=== PATIENT | female | born 1965 | race African-American/Black ===

== ENCOUNTER 2018-04-17 10:17 | Observation (INO) ==
[2018-04-17] MEDS ORDERED: ONDANSETRON 4 MG/2 ML VIAL IM STA (10:35)
[2018-04-17] MEDS ORDERED: ENOXAPARIN 100 MG/ML SYRINGE SUBCUT STA (10:35)
[2018-04-17] MEDS ORDERED: NITROGLYCERIN 2% OINT 1 INCH/GM PACK TOP STA (10:35)
[2018-04-17] MEDS ORDERED: ASPIRIN 325 MG TABLET PO STA (10:35)
[2018-04-17] MEDS ORDERED: MORPHINE 4 MG/1 ML VIAL IV STA (10:35)
[2018-04-17] MEDS ORDERED: METOPROLOL TARTRATE 5 MG/5 ML VIAL IV STA (10:41)
[2018-04-17 10:55] LABS: Basophils % 0.4 % (0.0-0.8); Eosinophils # 0.1 10*3/uL (0.0-0.87); Hematocrit 41.3 VOL% (35.7-47.0); Hemoglobin 13.4 GM/DL (12.0-16.0); Immature Granulocytes % 0.2 %; Immature Granulocytes Absolute 0.01 #; Lymphocytes # 2.1 10*3/uL (1.4-4.0); Lymphocytes % 38.7 % (21.3-54.2); Mean Corpuscular HGB Conc 32.4 GM/DL (32-36); Mean Corpuscular Hemoglobin 29 PG (27-34); Mean Corpuscular Volume 88.2 FL (87-102); Mean Platelet Volume 12.3 FL (9.6-12.0); Monocytes # 0.6 10*3/uL (0.11-0.8); Monocytes % 10.3 % (1.7-12.7); Neutrophils # 2.7 10*3/uL (1.4-7.4); Neutrophils % 48.4 % (38.7-73.9); Platelet Count 278 T/CUMM (130-400); Red Blood Count 4.68 MC/CUMM (3.8-5.5); White Blood Count 5.5 T/CUMM (4-12)
[2018-04-17 11:04] LABS: INR 1.1; PT Patient Result 11.9 SECS; Partial Thromboplastin Time 30.7 SECS (0-40)
[2018-04-17] MEDS ORDERED: ONDANSETRON 4 MG/2 ML VIAL IV STA (11:09)
[2018-04-17 11:22] LABS: Apearance,Urine Slightly Hazy (Clear); Blood, Urine Negative (Negative); Glucose,Urine (UA) Negative (Negative); Hyaline Casts,Urine 13 /LPF (0-3); Ketones,Urine 5 mg/dL (Negative); Mucus,Urine Moderate /LPF (Occasional); Nitrite,Urine Negative (Negative); Protein,Urine 30 MG/DL; Squamous Epithelial Cell,Urine Occasional /HPF (0-10); Urine Color Amber (Yellow); Urine Specific Gravity 1.025 (1.001-1.035); WBC,Urine 3 /HPF (0-6)
[2018-04-17 11:23] LABS: Bilirubin,Urine Small mg/dL (Negative)
[2018-04-17 11:36] LABS: Albumin 3.4 G/DL (3.4-5.0); Barbiturates Screen,Urine Negative (Negative); Benzodiazepines Screen,Urine Negative (Negative); Bilirubin,Total 0.6 MG/DL (0.2-1.0); Calcium 8.6 MG/DL (8.5-10.1); Cannabinoid Screen,Urine Positive (Negative); Opiate Screen,Urine Negative (Negative); Osmolality,Calculated 282.3 MOS/KG (273-304); Phencyclidine Screen,Urine Negative (Negative); Potassium 4.4 MMOL/L (3.5-5.1); Total Protein 7.6 G/DL (6.4-8.3)
[2018-04-17] MEDS ORDERED: LEVOFLOXACIN INJ 500 MG in PREMIX 1 EACH IV STA (12:48)
[2018-04-17] MEDS ORDERED: GLUCAGON 1 MG VIAL IM PRN ×2 (13:41→13:44)
[2018-04-17] MEDS ORDERED: ONDANSETRON 4 MG/2 ML VIAL IV PRN (13:41)
[2018-04-17] MEDS ORDERED: guaiFENesin/DM ER 600-30 MG TABLET PO PRN (13:41)
[2018-04-17] MEDS ORDERED: DOCUSATE SODIUM 100 MG CAPSULE PO PRN (13:41)
[2018-04-17] MEDS ORDERED: diphenhydrAMINE CAP 25 MG CAPSULE PO PRN (13:41)
[2018-04-17] MEDS ORDERED: DEXTROSE 50% 25 GM/50 ML VIAL IV PRN ×2 (13:41→13:44)
[2018-04-17] MEDS ORDERED: ENOXAPARIN 40 MG/0.4 ML SYRINGE SUBCUT SCH (14:00)
[2018-04-17] MEDS ORDERED: cefTRIAXone 1,000 MG in SYRINGE 1 EACH IV SCH (15:00)
[2018-04-17] MEDS: ACETAMINOPHEN 325 MG TABLET PO PRN (15:24)
[2018-04-17] MEDS: INSULIN REGULAR 100 UNIT/ML SUBCUT SCH ×2 (16:40→22:47)
[2018-04-17] MEDS: NICOTINE 21 MG/24 HR PATCH TRANSDERM SCH (16:50)
[2018-04-17] MEDS: FUROSEMIDE 40 MG/4 ML VIAL IV SCH (17:00)
[2018-04-18 01:54] LABS: Basophils % 0.4 % (0.0-0.8); Eosinophils # 0.2 10*3/uL (0.0-0.87); Eosinophils % 2.7 % (0.00-10.9); Hematocrit 41.7 VOL% (35.7-47.0); Hemoglobin 13.3 GM/DL (12.0-16.0); Immature Granulocytes % 0.2 %; Immature Granulocytes Absolute 0.01 #; Lymphocytes # 2.3 10*3/uL (1.4-4.0); Lymphocytes % 41.4 % (21.3-54.2); Mean Corpuscular HGB Conc 31.9 GM/DL (32-36); Mean Corpuscular Hemoglobin 29 PG (27-34); Mean Corpuscular Volume 89.5 FL (87-102); Mean Platelet Volume 11.9 FL (9.6-12.0); Monocytes # 0.5 10*3/uL (0.11-0.8); Monocytes % 9.6 % (1.7-12.7); Neutrophils # 2.6 10*3/uL (1.4-7.4); Neutrophils % 45.7 % (38.7-73.9); Platelet Count 278 T/CUMM (130-400); Red Blood Count 4.66 MC/CUMM (3.8-5.5); Red Cell Distribution Width 14.9 % (9.3-17.3); White Blood Count 5.6 T/CUMM (4-12)
[2018-04-18 02:10] LABS: Calcium 8.5 MG/DL (8.5-10.1); Osmolality,Calculated 282.3 MOS/KG (273-304); Potassium 3.3 MMOL/L (3.5-5.1)
[2018-04-18] MEDS: POTASSIUM CHLORIDE 20 MEQ TABLET PO PRN ×3 (04:38→10:34)
[2018-04-18] MEDS ORDERED: CARVEDILOL 3.125 MG TABLET PO SCH (09:00)
[2018-04-18] MEDS ORDERED: AZITHROMYCIN INJ 500 MG in SODIUM CHLORIDE 0.9% 250 ML IV SCH (09:00)
[2018-04-18] MEDS: INSULIN REGULAR 100 UNIT/ML SUBCUT SCH ×2 (10:30→14:29)
[2018-04-18] MEDS: ACETAMINOPHEN 325 MG TABLET PO PRN (10:31)
[2018-04-18] MEDS: NICOTINE 21 MG/24 HR PATCH TRANSDERM SCH (10:32)
[2018-04-18] MEDS: FUROSEMIDE 40 MG/4 ML VIAL IV SCH (10:36)
[2018-04-18 13:07] VITALS: BP 161/93
== END 2018-04-18 14:24 | disposition home or self-care (01) ==
LOC: N.EDINP 10:17 → N.ED 10:17 → N.TELEN 14:25
PROVIDERS: ADMIT Internal Medicine; ATTEND Internal Medicine

== ENCOUNTER 2018-06-11 01:05 | Inpatient (IN) ==
[2018-06-11] MEDS ORDERED: MIDAZOLAM 100 MG in SODIUM CHLORIDE 0.9% 80 ML IV PRN (02:40)
[2018-06-11 02:55] LABS: ABG Base Excess 0.6 MMOL/L (-2.5-2.5); ABG HCO3 24.9 MMOL/L (20-26); ABG Oxygen Saturation 97.6 % (95-100); ABG PH 7.317 (7.35-7.45); ABG TCO2 24.4 MMOL/L (23-27); Allen Test Positive; Pt O2 Delivery Device Ventilator
[2018-06-11 03:11] LABS: Basophils % 0.3 % (0.0-0.8); Eosinophils % 0.2 % (0.00-10.9); Hematocrit 47.3 VOL% (35.7-47.0); Hemoglobin 14.9 GM/DL (12.0-16.0); Immature Granulocytes % 0.6 %; Immature Granulocytes Absolute 0.08 #; Lymphocytes # 1.7 10*3/uL (1.4-4.0); Lymphocytes % 12.6 % (21.3-54.2); Mean Corpuscular HGB Conc 31.5 GM/DL (32-36); Mean Corpuscular Hemoglobin 29 PG (27-34); Mean Platelet Volume 11.7 FL (9.6-12.0); Monocytes # 0.7 10*3/uL (0.11-0.8); Monocytes % 5.2 % (1.7-12.7); Neutrophils # 10.8 10*3/uL (1.4-7.4); Neutrophils % 81.1 % (38.7-73.9); Platelet Count 240 T/CUMM (130-400); Red Cell Distribution Width 15.5 % (9.3-17.3); White Blood Count 13.3 T/CUMM (4-12)
[2018-06-11] MEDS ORDERED: ALBUTEROL 2.5 MG/3 ML NEB RESP TX PRN (03:38)
[2018-06-11] MEDS ORDERED: ACETAMINOPHEN 325 MG TABLET PO PRN (03:38)
[2018-06-11 03:40] LABS: Alanine Aminotransferase 24 U/L (13-56); Albumin 3.8 G/DL (3.4-5.0); Alkaline Phosphatase 112 U/L (45-117); Aspartate Amino Transferase 28 U/L (0-37); Blood Urea Nitrogen 12 MG/DL (7-18); Calcium 8.8 MG/DL (8.5-10.1); Glucose 263 MG/DL (74-106); Osmolality,Calculated 285.5 MOS/KG (273-304); Potassium 3.9 MMOL/L (3.5-5.1); Sodium 139 MMOL/L (136-145); Total Protein 8.7 G/DL (6.4-8.3)
[2018-06-11 03:43] LABS: Troponin I 0.108 NG/ML (0.00-0.045)
[2018-06-11 03:55] LABS: PT Patient Result 11.3 SECS
[2018-06-11] MEDS: PROPOFOL 1,000 MG/100 ML BOTTLE IV SCH ×4 (04:00→23:30)
[2018-06-11] MEDS: PANTOPRAZOLE 40 MG VIAL IV SCH (05:59)
[2018-06-11] MEDS: ENOXAPARIN 40 MG/0.4 ML SYRINGE SUBCUT SCH (08:47)
[2018-06-11] MEDS: FUROSEMIDE 40 MG/4 ML VIAL IV SCH ×2 (08:47→15:51)
[2018-06-11 08:50] LABS: Amorphous Crystals,Urine Occasional /HPF (Few); Apearance,Urine CLEAR (Clear); Bilirubin,Urine Negative (Negative); Blood, Urine Negative (Negative); Glucose,Urine (UA) Negative (Negative); Ketones,Urine Negative (Negative); Mucus,Urine Occasional /LPF (Occasional); Nitrite,Urine Negative (Negative); Protein,Urine Negative; RBC,Urine 5 /HPF (0-4); Urine Color Yellow (Yellow); Urine Specific Gravity 1.018 (1.001-1.035); Urine Urobilinogen < 2.0 EU/DL (0.2-1.0); WBC,Urine 20 /HPF (0-6)
[2018-06-11 09:06] LABS: Barbiturates Screen,Urine Negative (Negative); Benzodiazepines Screen,Urine Positive (Negative); Cannabinoid Screen,Urine Positive (Negative); Opiate Screen,Urine Negative (Negative); Phencyclidine Screen,Urine Negative (Negative)
[2018-06-11] MEDS: fentaNYL INJ 1,250 MCG in SODIUM CHLORIDE 0.9% 225 ML IV PRN ×2 (10:06→22:33)
[2018-06-11] MEDS ORDERED: DEXTROSE 50% 25 GM/50 ML SYRINGE IV PRN (12:48)
[2018-06-11] MEDS ORDERED: GLUCAGON 1 MG VIAL IM PRN (12:48)
[2018-06-11] MEDS: INSULIN REGULAR 100 UNIT/ML SUBCUT SCH ×2 (18:42→23:14)
[2018-06-11] MEDS: CARVEDILOL 6.25 MG TABLET PO SCH (21:32)
[2018-06-11] MEDS ORDERED: SODIUM CHLORIDE 0.9% 250 ML IV ONE (23:19)
[2018-06-11] MEDS ORDERED: PHENYLEPHRINE DRIP 40 MG/250 ML PREMIX IV PRN (23:20)
[2018-06-12] MEDS ORDERED: SODIUM CHLORIDE 0.9% 250 ML IV ONE (02:27)
[2018-06-12] MEDS: PROPOFOL 1,000 MG/100 ML BOTTLE IV SCH ×3 (02:30→20:31)
[2018-06-12 03:58] LABS: Allen Test Positive; Pt O2 Delivery Device Ventilator
[2018-06-12 03:59] LABS: ABG Base Excess 5.5 MMOL/L (-2.5-2.5); ABG HCO3 29.4 MMOL/L (20-26); ABG Oxygen Saturation 99.9 % (95-100); ABG PCO2 27.4 MM HG (35-48); ABG TCO2 22.6 MMOL/L (23-27)
[2018-06-12] MEDS: PANTOPRAZOLE 40 MG VIAL IV SCH (04:22)
[2018-06-12 04:49] LABS: Basophils % 0.5 % (0.0-0.8); Eosinophils # 0.1 10*3/uL (0.0-0.87); Eosinophils % 1.5 % (0.00-10.9); Hematocrit 40.9 VOL% (35.7-47.0); Hemoglobin 13.3 GM/DL (12.0-16.0); Immature Granulocytes % 0.2 %; Immature Granulocytes Absolute 0.02 #; Lymphocytes # 3.2 10*3/uL (1.4-4.0); Lymphocytes % 37.6 % (21.3-54.2); Mean Corpuscular HGB Conc 32.5 GM/DL (32-36); Mean Corpuscular Hemoglobin 28 PG (27-34); Mean Corpuscular Volume 86.8 FL (87-102); Mean Platelet Volume 12.1 FL (9.6-12.0); Monocytes # 0.9 10*3/uL (0.11-0.8); Monocytes % 10.2 % (1.7-12.7); Neutrophils # 4.3 10*3/uL (1.4-7.4); Platelet Count 231 T/CUMM (130-400); Red Blood Count 4.71 MC/CUMM (3.8-5.5); Red Cell Distribution Width 15.1 % (9.3-17.3); White Blood Count 8.6 T/CUMM (4-12)
[2018-06-12 05:06] LABS: Calcium 8.9 MG/DL (8.5-10.1); Osmolality,Calculated 288.1 MOS/KG (273-304); Potassium 3.3 MMOL/L (3.5-5.1)
[2018-06-12 05:11] LABS: Prealbumin 14.5 MG/DL (20-40)
[2018-06-12] MEDS ORDERED: POTASSIUM CHLORIDE 20 MEQ/15 ML UDCUP PER TUBE PRN (05:37)
[2018-06-12] MEDS: INSULIN REGULAR 100 UNIT/ML SUBCUT SCH ×4 (05:48→23:35)
[2018-06-12 06:23] LABS: Calcium 9.2 MG/DL (8.5-10.1); Potassium 3.7 MMOL/L (3.5-5.1)
[2018-06-12] MEDS ORDERED: SPIRONOLACTONE 25 MG TABLET PO SCH (09:00)
[2018-06-12] MEDS ORDERED: LOSARTAN 25 MG TABLET PO SCH (09:00)
[2018-06-12] MEDS: FUROSEMIDE 40 MG/4 ML VIAL IV SCH (09:04)
[2018-06-12] MEDS: ENOXAPARIN 40 MG/0.4 ML SYRINGE SUBCUT SCH (09:05)
[2018-06-12] MEDS: CARVEDILOL 6.25 MG TABLET PO SCH (09:05)
[2018-06-12] MEDS: fentaNYL INJ 1,250 MCG in SODIUM CHLORIDE 0.9% 225 ML IV PRN ×2 (09:36→18:28)
[2018-06-12] MEDS: cefTRIAXone 1,000 MG in SYRINGE 1 EACH IV SCH (12:15)
[2018-06-13] MEDS: PROPOFOL 1,000 MG/100 ML BOTTLE IV SCH ×3 (00:34→04:09)
[2018-06-13] MEDS: PANTOPRAZOLE 40 MG VIAL IV SCH (03:55)
[2018-06-13 04:36] LABS: Basophils % 0.4 % (0.0-0.8); Eosinophils # 0.2 10*3/uL (0.0-0.87); Hematocrit 43.3 VOL% (35.7-47.0); Hemoglobin 13.4 GM/DL (12.0-16.0); Immature Granulocytes % 0.2 %; Immature Granulocytes Absolute 0.02 #; Lymphocytes # 3.1 10*3/uL (1.4-4.0); Mean Corpuscular HGB Conc 30.9 GM/DL (32-36); Mean Corpuscular Hemoglobin 28 PG (27-34); Mean Platelet Volume 12.6 FL (9.6-12.0); Monocytes # 1.3 10*3/uL (0.11-0.8); Neutrophils # 5.6 10*3/uL (1.4-7.4); Neutrophils % 54.4 % (38.7-73.9); Platelet Count 231 T/CUMM (130-400); Red Blood Count 4.76 MC/CUMM (3.8-5.5); Red Cell Distribution Width 15.8 % (9.3-17.3); White Blood Count 10.3 T/CUMM (4-12)
[2018-06-13 04:43] LABS: ABG Base Excess 3.8 MMOL/L (-2.5-2.5); ABG HCO3 27.8 MMOL/L (20-26); ABG Oxygen Saturation 98.5 % (95-100); ABG PCO2 39.3 MM HG (35-48); ABG PH 7.457 (7.35-7.45); ABG TCO2 23.7 MMOL/L (23-27); Allen Test Positive; Pt O2 Delivery Device Ventilator
[2018-06-13 04:52] LABS: Calcium 9.2 MG/DL (8.5-10.1); Osmolality,Calculated 285.3 MOS/KG (273-304); Potassium 4.2 MMOL/L (3.5-5.1)
[2018-06-13] MEDS: INSULIN REGULAR 100 UNIT/ML SUBCUT SCH ×2 (05:38→11:48)
[2018-06-13] MEDS ORDERED: FUROSEMIDE 40 MG/4 ML VIAL IV ONE (07:15)
[2018-06-13] MEDS: ENOXAPARIN 40 MG/0.4 ML SYRINGE SUBCUT SCH (08:45)
[2018-06-13] MEDS: LOSARTAN 25 MG TABLET PO SCH (08:50)
[2018-06-13] MEDS: CARVEDILOL 6.25 MG TABLET PO SCH ×2 (08:50→20:58)
[2018-06-13] MEDS: SPIRONOLACTONE 25 MG TABLET PO SCH (08:50)
[2018-06-13] MEDS: ONDANSETRON 4 MG/2 ML VIAL IV PRN ×2 (09:40→12:20)
[2018-06-13] MEDS: cefTRIAXone 1,000 MG in SYRINGE 1 EACH IV SCH (12:15)
[2018-06-13] MEDS ORDERED: ACETAMINOPHEN 500 MG TABLET PO PRN (13:24)
[2018-06-13] MEDS: hydrALAZINE 20 MG/1 ML VIAL IV PRN ×2 (13:40→20:58)
[2018-06-13] MEDS ORDERED: PROMETHAZINE 25 MG TABLET PO PRN (14:12)
[2018-06-14 07:17] LABS: Basophils % 0.4 % (0.0-0.8); Eosinophils # 0.1 10*3/uL (0.0-0.87); Eosinophils % 0.8 % (0.00-10.9); Immature Granulocytes % 0.4 %; Immature Granulocytes Absolute 0.03 #; Lymphocytes # 2.3 10*3/uL (1.4-4.0); Lymphocytes % 26.9 % (21.3-54.2); Mean Corpuscular HGB Conc 31.3 GM/DL (32-36); Mean Corpuscular Hemoglobin 29 PG (27-34); Mean Corpuscular Volume 91.4 FL (87-102); Mean Platelet Volume 11.9 FL (9.6-12.0); Monocytes # 0.8 10*3/uL (0.11-0.8); Monocytes % 9.5 % (1.7-12.7); Neutrophils # 5.3 10*3/uL (1.4-7.4); Red Blood Count 5.25 MC/CUMM (3.8-5.5); Red Cell Distribution Width 15.6 % (9.3-17.3); White Blood Count 8.5 T/CUMM (4-12)
[2018-06-14 07:34] LABS: Calcium 9.6 MG/DL (8.5-10.1); Osmolality,Calculated 280.5 MOS/KG (273-304); Potassium 3.7 MMOL/L (3.5-5.1)
[2018-06-14 07:41] LABS: Platelet Count 169 T/CUMM (130-400)
[2018-06-14] MEDS: CARVEDILOL 6.25 MG TABLET PO SCH ×2 (08:40→20:00)
[2018-06-14] MEDS: PANTOPRAZOLE 40 MG TABLET PO SCH (08:40)
[2018-06-14] MEDS: SPIRONOLACTONE 25 MG TABLET PO SCH (08:40)
[2018-06-14] MEDS: ENOXAPARIN 40 MG/0.4 ML SYRINGE SUBCUT SCH (08:40)
[2018-06-14] MEDS: LOSARTAN 25 MG TABLET PO SCH (08:40)
[2018-06-15 06:00] LABS: Basophils # 0.1 10*3/uL (0.0-0.2); Basophils % 0.6 % (0.0-0.8); Eosinophils # 0.2 10*3/uL (0.0-0.87); Eosinophils % 2.9 % (0.00-10.9); Hematocrit 43.1 VOL% (35.7-47.0); Hemoglobin 13.6 GM/DL (12.0-16.0); Immature Granulocytes % 0.2 %; Immature Granulocytes Absolute 0.02 #; Lymphocytes # 3.6 10*3/uL (1.4-4.0); Lymphocytes % 42.8 % (21.3-54.2); Mean Corpuscular HGB Conc 31.6 GM/DL (32-36); Mean Corpuscular Hemoglobin 29 PG (27-34); Mean Corpuscular Volume 90.5 FL (87-102); Mean Platelet Volume 12.3 FL (9.6-12.0); Monocytes # 0.9 10*3/uL (0.11-0.8); Monocytes % 10.6 % (1.7-12.7); Neutrophils # 3.6 10*3/uL (1.4-7.4); Neutrophils % 42.9 % (38.7-73.9); Platelet Count 233 T/CUMM (130-400); Red Blood Count 4.76 MC/CUMM (3.8-5.5); Red Cell Distribution Width 15.1 % (9.3-17.3); White Blood Count 8.4 T/CUMM (4-12)
[2018-06-15 06:21] LABS: Calcium 9.1 MG/DL (8.5-10.1); Osmolality,Calculated 283.4 MOS/KG (273-304); Potassium 3.6 MMOL/L (3.5-5.1)
[2018-06-15] MEDS: LOSARTAN 25 MG TABLET PO SCH (09:09)
[2018-06-15] MEDS: ENOXAPARIN 40 MG/0.4 ML SYRINGE SUBCUT SCH (09:09)
[2018-06-15] MEDS: CARVEDILOL 6.25 MG TABLET PO SCH (09:09)
[2018-06-15] MEDS: PANTOPRAZOLE 40 MG TABLET PO SCH (09:09)
[2018-06-15] MEDS: POTASSIUM CHLORIDE 20 MEQ TABLET PO PRN ×2 (09:09→13:42)
[2018-06-15] MEDS: SPIRONOLACTONE 25 MG TABLET PO SCH (09:09)
[2018-06-15 15:49] VITALS: BP 145/82
== END 2018-06-15 17:55 | disposition home or self-care (01) | DRG 208 ==
LOC: SUPCPDRO 02:19 → SUATTDRO 02:19 → N.ICU 02:19 → N.4E 06-15
PROVIDERS: ADMIT Internal Medicine; ATTEND Internal Medicine

== ENCOUNTER 2019-03-27 20:11 | Observation (INO) ==
[2019-03-27] MEDS ORDERED: NITROGLYCERIN 2% OINT 1 INCH/GM PACK TOP STA (20:34)
[2019-03-27] MEDS ORDERED: ONDANSETRON 4 MG/2 ML VIAL IV STA (20:34)
[2019-03-27] MEDS ORDERED: ASPIRIN 325 MG TABLET PO STA (20:34)
[2019-03-27] MEDS ORDERED: FUROSEMIDE 40 MG/4 ML VIAL IV STA (20:34)
[2019-03-27] MEDS ORDERED: ALBUTEROL/IPRATROPIUM 3 ML NEB RESP TX STA (20:34)
[2019-03-27] MEDS ORDERED: MORPHINE 4 MG/1 ML VIAL IV STA (20:34)
[2019-03-27 21:00] LABS: Basophils % 0.5 % (0.0-0.8); Eosinophils # 0.2 10*3/uL (0.0-0.87); Hematocrit 43.7 VOL% (35.7-47.0); Hemoglobin 14.6 GM/DL (12.0-16.0); Immature Granulocytes % 0.3 %; Immature Granulocytes Absolute 0.02 #; Lymphocytes # 4.2 10*3/uL (1.4-4.0); Lymphocytes % 54.8 % (21.3-54.2); Mean Corpuscular HGB Conc 33.4 GM/DL (32-36); Mean Corpuscular Volume 88.5 FL (87-102); Monocytes % 7.7 % (1.7-12.7); Neutrophils % 34.7 % (38.7-73.9); Platelet Count 253 T/CUMM (130-400); Red Blood Count 4.94 MC/CUMM (3.8-5.5); Red Cell Distribution Width 15.1 % (9.3-17.3); White Blood Count 7.7 T/CUMM (4-12)
[2019-03-27 21:11] LABS: INR 1.1; PT Patient Result 11.6 SECS (9.6-12.2)
[2019-03-27 21:17] LABS: Apearance,Urine CLEAR (Clear); Bilirubin,Urine Negative (Negative); Blood, Urine Negative (Negative); Glucose,Urine (UA) Negative (Negative); Ketones,Urine Negative (Negative); Nitrite,Urine Negative (Negative); Protein,Urine Negative; RBC,Urine 1 /HPF (0-4); Urine Color Colorless (Yellow); Urine Specific Gravity 1.004 (1.001-1.035); Urine Urobilinogen < 2.0 EU/DL (0.2-1.0)
[2019-03-27 21:19] LABS: Alanine Aminotransferase 14 U/L (13-56); Albumin 3.9 G/DL (3.4-5.0); Alkaline Phosphatase 97 U/L (45-117); Aspartate Amino Transferase 17 U/L (0-37); Bilirubin,Total < 0.39 MG/DL (0.2-1.0); Blood Urea Nitrogen 8 MG/DL (7-18); Calcium 9.2 MG/DL (8.5-10.1); Estimated Glom Filtration Rate 108 ML/MIN; Glucose 120 MG/DL (74-106); Osmolality,Calculated 281.1 MOS/KG (273-304); Total Protein 7.7 G/DL (6.4-8.3)
[2019-03-27 21:21] LABS: Atypical Lymphocytes 1+; Eosinophils 5 % (0-10); Lymphocytes 63 % (20-55); Segmented Neutrophils 26 % (50-85); Total Cells Counted 100
[2019-03-27 21:22] LABS: Platelet Estimate Adequate
[2019-03-27] MEDS ORDERED: LORazepam 2 MG/1 ML VIAL IV STA ×2 (21:24→21:25)
[2019-03-27] MEDS ORDERED: LORazepam 2 MG/1 ML VIAL ONE (21:27)
[2019-03-27] MEDS ORDERED: hydrALAZINE 20 MG/1 ML VIAL IV STA (21:42)
[2019-03-27] MEDS ORDERED: MORPHINE 4 MG/1 ML VIAL IV PRN (22:08)
[2019-03-27] MEDS ORDERED: ONDANSETRON 4 MG/2 ML VIAL IV PRN (22:08)
[2019-03-27] MEDS ORDERED: NICOTINE 21 MG/24 HR PATCH TRANSDERM PRN (22:08)
[2019-03-27] MEDS ORDERED: hydrALAZINE 20 MG/1 ML VIAL IV PRN (22:08)
[2019-03-27] MEDS ORDERED: ACETAMINOPHEN 325 MG TABLET PO PRN (22:08)
[2019-03-27] MEDS ORDERED: diphenhydrAMINE CAP 25 MG CAPSULE PO PRN (22:08)
[2019-03-27] MEDS ORDERED: traZODone 50 MG TABLET PO PRN (22:08)
[2019-03-27] MEDS ORDERED: LORazepam 2 MG/1 ML VIAL IV PRN (22:08)
[2019-03-28 02:05] LABS: Risk Ratio 2.37; Thyroid Stimulating Hormone 0.911 uIU/ml (0.358-3.74); VLDL CHOLESTEROL 10.4 MG/DL
[2019-03-28] MEDS: ALBUTEROL/IPRATROPIUM 3 ML NEB RESP TX SCH ×3 (02:05→13:24)
[2019-03-28] MEDS ORDERED: FUROSEMIDE 40 MG/4 ML VIAL IV SCH (09:00)
[2019-03-28] MEDS ORDERED: FUROSEMIDE 20 MG/2 ML VIAL IV SCH (09:00)
[2019-03-28] MEDS ORDERED: carvediloL 6.25 MG TABLET PO SCH (09:00)
[2019-03-28] MEDS ORDERED: ENOXAPARIN 40 MG/0.4 ML SYRINGE SUBCUT SCH (09:00)
[2019-03-28] MEDS ORDERED: ATORVASTATIN 40 MG TABLET PO SCH (09:00)
[2019-03-28] MEDS ORDERED: LOSARTAN 50 MG TABLET PO SCH (09:00)
[2019-03-28] MEDS ORDERED: ASPIRIN EC 81 MG TABLET PO SCH (09:00)
[2019-03-28] MEDS ORDERED: PANTOPRAZOLE 40 MG TABLET PO SCH (09:00)
[2019-03-28] MEDS ORDERED: SPIRONOLACTONE 25 MG TABLET PO SCH (09:00)
[2019-03-28 09:20] LABS: Barbiturates Screen,Urine Negative (Negative); Benzodiazepines Screen,Urine Negative (Negative); Cannabinoid Screen,Urine Positive (Negative); Opiate Screen,Urine Positive (Negative); Phencyclidine Screen,Urine Negative (Negative)
[2019-03-28 11:45] VITALS: BP 142/71
== END 2019-03-28 14:30 | disposition home or self-care (01) ==
LOC: N.EDINP 20:11 → N.ED 20:11 → N.EDINP 23:42 → N.2W 03-28 00:13
PROVIDERS: ADMIT Internal Medicine; ATTEND Internal Medicine

== ENCOUNTER 2020-08-27 08:52 | Observation (INO) ==
[2020-08-27 09:24] LABS: Basophils % 0.7 % (0.0-0.8); Eosinophils # 0.1 10*3/uL (0.0-0.87); Eosinophils % 2.2 % (0.00-10.9); Hematocrit 40.4 VOL% (35.7-47.0); Immature Granulocytes % 0.2 %; Immature Granulocytes Absolute 0.01 #; Lymphocytes # 1.6 10*3/uL (1.4-4.0); Lymphocytes % 39.3 % (21.3-54.2); Mean Corpuscular HGB Conc 32.2 GM/DL (32-36); Mean Corpuscular Volume 94.2 FL (87-102); Mean Platelet Volume 11.3 FL (9.6-12.0); Neutrophils % 49.6 % (38.7-73.9); Platelet Count 245 T/CUMM (130-400); Red Blood Count 4.29 MC/CUMM (3.8-5.5); Red Cell Distribution Width 14.7 % (9.3-17.3); White Blood Count 4.1 T/CUMM (4-12)
[2020-08-27] MEDS ORDERED: methylPREDNISolone SOD SUC 125 MG/2 ML VIAL IV STA (09:35)
[2020-08-27 09:43] LABS: Eosinophils 5 % (0-10); Hypochromasia Slight; Lymphocytes 38 % (20-55); Platelet Estimate Adequate; Segmented Neutrophils 51 % (50-85); Total Cells Counted 100
[2020-08-27 09:50] LABS: Albumin 3.7 G/DL (3.4-5.0); Bilirubin,Total 0.8 MG/DL (0.2-1.0); Osmolality,Calculated 282.3 MOS/KG (273-304); Potassium 4.1 MMOL/L (3.5-5.1); Total Protein 7.1 G/DL (6.4-8.2)
[2020-08-27] MEDS ORDERED: ALBUTEROL NEB SOLN 5 MG/ML 20 ML/BOTTLE CONT NEB SCH (10:00)
[2020-08-27] MEDS ORDERED: FUROSEMIDE 40 MG/4 ML VIAL IV STA (10:17)
[2020-08-27] MEDS ORDERED: hydrALAZINE 20 MG/1 ML VIAL IV STA (10:17)
[2020-08-27] MEDS ORDERED: DEXTROSE 50% 25 GM/50 ML VIAL IV PRN (12:14)
[2020-08-27] MEDS ORDERED: ACETAMINOPHEN 325 MG TABLET PO PRN (12:14)
[2020-08-27] MEDS ORDERED: ONDANSETRON 4 MG/2 ML VIAL IV PRN (12:14)
[2020-08-27] MEDS ORDERED: GLUCAGON 1 MG VIAL IM PRN (12:14)
[2020-08-27] MEDS ORDERED: hydrALAZINE 20 MG/1 ML VIAL IV PRN (13:27)
[2020-08-27] MEDS: ALBUTEROL/IPRATROPIUM 3 ML NEB RESP TX SCH ×2 (14:31→19:42)
[2020-08-27] MEDS: NICOTINE 21 MG/24 HR PATCH TRANSDERM SCH (14:43)
[2020-08-27] MEDS: FUROSEMIDE 40 MG/4 ML VIAL IV SCH (16:03)
[2020-08-27] MEDS ORDERED: LABETALOL 20 MG/4 ML SYRINGE IV ONE (18:10)
[2020-08-27] MEDS ORDERED: KETOROLAC 15 MG/1 ML VIAL IV PRN (18:11)
[2020-08-27 19:56] LABS: Barbiturates Screen,Urine Negative (Negative); Benzodiazepines Screen,Urine Negative (Negative); Cannabinoid Screen,Urine Positive (Negative); Opiate Screen,Urine Negative (Negative); Phencyclidine Screen,Urine Negative (Negative)
[2020-08-27] MEDS: carvediloL 6.25 MG TABLET PO SCH (21:11)
[2020-08-28] MEDS: ALBUTEROL/IPRATROPIUM 3 ML NEB RESP TX SCH ×2 (00:24→07:29)
[2020-08-28 05:16] LABS: Basophils % 0.3 % (0.0-0.8); Eosinophils % 0.3 % (0.00-10.9); Hematocrit 41.6 VOL% (35.7-47.0); Hemoglobin 13.4 GM/DL (12.0-16.0); Immature Granulocytes % 0.2 %; Immature Granulocytes Absolute 0.01 #; Lymphocytes # 1.8 10*3/uL (1.4-4.0); Lymphocytes % 30.7 % (21.3-54.2); Mean Corpuscular HGB Conc 32.2 GM/DL (32-36); Mean Corpuscular Volume 91.8 FL (87-102); Mean Platelet Volume 11.6 FL (9.6-12.0); Monocytes % 10.5 % (1.7-12.7); Platelet Count 265 T/CUMM (130-400); Red Blood Count 4.53 MC/CUMM (3.8-5.5); Red Cell Distribution Width 14.5 % (9.3-17.3)
[2020-08-28 05:39] LABS: Calcium 9.4 MG/DL (8.5-10.1); Osmolality,Calculated 283.3 MOS/KG (273-304); Potassium 3.5 MMOL/L (3.5-5.1)
[2020-08-28 05:41] LABS: Eosinophils 2 % (0-10); Lymphocytes 31 % (20-55); Platelet Estimate Adequate; Segmented Neutrophils 60 % (50-85); Total Cells Counted 100
[2020-08-28 05:42] LABS: Atypical Lymphocytes Few
[2020-08-28] MEDS ORDERED: SPIRONOLACTONE 25 MG TABLET PO SCH (09:00)
[2020-08-28] MEDS ORDERED: ATORVASTATIN 40 MG TABLET PO SCH (09:00)
[2020-08-28] MEDS: FUROSEMIDE 40 MG/4 ML VIAL IV SCH (09:29)
[2020-08-28] MEDS: carvediloL 6.25 MG TABLET PO SCH (09:29)
[2020-08-28] MEDS: NICOTINE 21 MG/24 HR PATCH TRANSDERM SCH (09:29)
[2020-08-28 12:19] VITALS: BP 111/66
== END 2020-08-28 13:40 | disposition home or self-care (01) ==
LOC: N.EDINP 08:52 → N.ED 08:52 → N.TELES 12:52
PROVIDERS: ADMIT Internal Medicine; ATTEND Internal Medicine